=== PATIENT | male | born 1995 | race Caucasian/White ===

== ENCOUNTER 2021-04-14 20:21 | Observation (INO) | payer OTHER ==
[~2021-04-14] VITALS: Ht 175.3 cm; Wt 83.0 kg
[~2021-04-14 20:21] MED LIST: ACYCLOVIR400 MG PO; DOXYCYCLINE HY100 M2 PO
[2021-04-14] MEDS ORDERED: IBUPROFEN200 M1 PO (22:52)
--- NOTE | 2021-04-15 17:54 | NUR ---
PATIENT WAS SENT TO THE FLOOR WITH DISCHARGE ORDERS BUT NO PAIN MEDS TO GO HOME WITH AFTER SURGERY, I HAVE CALLED THE ORTHO SURGEON WHO DID THE PATIENTS SURGERY AND NOTIFIED HIM THAT NO PAIN MEDS WHERE SENT TO THE PATIENTS PHARMACY ([facility]) AFTER CALLING AND CHECKING WITH THE PHARMACY, THE OR TECH ADVISED ME TO CALL AND ASK THE HOSPITALIST (DR. MAST) IF SHE WOULD WRITE IT BECAUSE DR. SMITH WAS IN ANOTHER CASE, DR. MAST SAID NO TO CONTACT THE SURGEON WHO DID THE SURGERY, I CALLED DR. SMITH AGAIN FOR PAIN MEDS AND THE OR NURSE SAID SHE WOULD HAVE THE MD CALL ME AFTER HIS CASE, DR. SMITH CALLED AND TOLD ME HE WOULD CALL PAIN MEDS IN FOR THE PATIENT TO [facility] IN [place] BECAUSE THE PATIENTS ORIGINAL PHARMACY ([facility]) WAS CLOSING AT 6PM. I HAVE ATTEMPTED TO CALL THE PATIENT TWICE TO NOTIFY THEM THAT THE PAIN MEDS ARE BEING CALLED IN AND THEY ARE NOT ANSWERING THE PHONE. RISK ASSESSOR HAS BEEN NOTIFIED OF THE SITUATION. PATIENT WAS MADE AWARE THAT THE PAIN MEDS WAS GOING TO BE CALLED INTO [facility] BEFORE LEAVING PATIENT REFUSED TO NOT WAIT AT THE FACILITY UNTIL THE MD CALLED IN HIS PAIN MEDS, 1800 PATIENT RETURNED CALL AND WAS MADE AWARE AGAIN THAT THE MD CALLED IN HIS PAIN MEDS TO [facility] IN [place].
== END 2021-04-15 17:27 | disposition home or self-care (01) ==
LOC: ER1 20:21 → CDU 21:50 → M/S 21:50
PROVIDERS: Orthopaedic Surgery; ADMIT Internal Medicine
PROC: 0PST04Z Reposition Right Finger Phalanx with Internal Fixation Device, Open Approach (ICD-10-PCS; principal; 2021-04-15 13:06)
DX: S62.616B Displaced fracture of proximal phalanx of right little finger, initial encounter for open fracture (principal); F10.10 Alcohol abuse, uncomplicated; F17.210 Nicotine dependence, cigarettes, uncomplicated; Z20.822 Contact with and (suspected) exposure to COVID-19; W22.09XA Striking against other stationary object, initial encounter
CPT/HCPCS: 36415; 73130; 73140; 73200; 76000; 82550; 82553; 83735; 84100; 84484; 96372; 96374; 99285; C1713; G0378; J0690; J1100; J1885; J2001; J2250; J2405; J2704; J2765; J3010; J3411; J3475; J7030; J7120; U0002

== ENCOUNTER 2021-04-17 18:09 | Emergency (ER) | payer OTHER ==
[~2021-04-17 18:09] MED LIST changes: +IBUPROFEN200 M1 PO
[2021-04-17] MEDS ORDERED: IBUPROFEN800 MG PO (18:47)
[2021-04-17] MEDS ORDERED: CEPHALEXIN500 M1 PO (18:49)
== END 2021-04-17 19:00 | disposition home or self-care (01) ==
LOC: ER1 18:09
DX: S62.636B Displaced fracture of distal phalanx of right little finger, initial encounter for open fracture (principal); F17.210 Nicotine dependence, cigarettes, uncomplicated; W19.XXXA Unspecified fall, initial encounter
CPT/HCPCS: 99283

== ENCOUNTER 2021-04-18 15:24 | Emergency (ER) | payer OTHER ==
[~2021-04-18 15:24] MED LIST changes: +CEPHALEXIN500 M1 PO; +IBUPROFEN800 MG PO
== END 2021-04-18 15:45 | disposition home or self-care (01) ==
LOC: ER1 15:24
DX: Z47.89 Encounter for other orthopedic aftercare (principal); F17.210 Nicotine dependence, cigarettes, uncomplicated
CPT/HCPCS: 99282

== ENCOUNTER 2021-04-26 11:10 | Emergency (ER) | payer OTHER | END 2021-04-26 12:00 | disposition home or self-care (01) | LOC: ER1 11:10 | DX: M79.641 Pain in right hand (principal); F17.210 Nicotine dependence, cigarettes, uncomplicated | CPT/HCPCS: 99283 ==

== ENCOUNTER 2021-05-02 19:08 | Emergency (ER) | payer OTHER ==
[2021-05-02 20:30] LABS: HEMOGLOBIN 14.4 gm/dl (14.0-17.5); RED BLOOD COUNT 4.37 M/UL (4.20-5.50); WHITE BLOOD COUNT 9.2 K/UL (4.5-11.0)
[2021-05-02 21:01] LABS: BUN/CREATININE RATIO 12 (0-10)
[2021-05-02] MEDS ORDERED: NAPROXEN500 MG PO (21:52)
== END 2021-05-02 22:20 | disposition home or self-care (01) ==
LOC: ER1 19:08
PROVIDERS: Physician Assistant Medical
DX: G89.18 Other acute postprocedural pain (principal); M79.641 Pain in right hand; M79.89 Other specified soft tissue disorders; F17.210 Nicotine dependence, cigarettes, uncomplicated
CPT/HCPCS: 80053; 85025; 85652; 86140; 99283